=== PATIENT | female | born 1995 | race African-American/Black ===

== ENCOUNTER 2020-05-15 22:08 | Outpatient (CLI) | payer BC, OTHER ==
[2020-05-15 22:55] VITALS: BP 127/61; PULSE 90; RESP 16; TEMP 97
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
== END 2020-05-15 22:39 | disposition home or self-care (01) ==
LOC: FBPOP 22:08
PROVIDERS: ATTEND Obstetrics & Gynecology
DX: O26.92 Pregnancy related conditions, unspecified, second trimester (principal); Z3A.26 26 weeks gestation of pregnancy
CPT/HCPCS: 99213

== ENCOUNTER 2020-07-23 13:37 | Outpatient (CLI) | payer BC, OTHER ==
[2020-07-23 14:25] VITALS: BP 129/68; PULSE 88; RESP 15; TEMP 97.9
--- NOTE | 2020-07-30 08:54 | P.MSEPDOC ---
Presenting Problems - Arrival Data Date of Arrival on Unit: 07/23/20 Time of Arrival on Unit: 13:37 Mode of Transport: Ambulatory - Complaint OB-Reason for Admission/Chief Complaint: Decreased Movement Medical History - Information : 1 Para: 0 Term: 0 : 0 Abortions: Spontaneous or Elective: 0 Number of Living Children: 0 - Gestational Age Gestational Age by MELIZA (wks/days): 36 Weeks and 3 Days Review of Systems - Review of Systems Constitutional: No problems Breast: No problems ENT: No problems Cardiovascular: No problems Respiratory: No problems Gastrointestinal: No problems Genitourinary: No problems Musculoskeletal: No problems Neurological: No problems Skin: No problems Vital Signs - Temperature Temperature: 97.9 F Temperature Source: Temporal Artery Scan - Pulse Brachial Pulse Rate: 88 Pulse Assessment Method: Automatic Cuff - Respirations Respiratory Rate: 15 Oxygen Delivery Method: Room Air O2 Sat by Pulse Oximetry: 97 - Blood Pressure Right Arm Sitting Blood Pressure: 129/68 Blood Pressure Mean: 88 Blood Pressure Source: Automatic Cuff Medical Screen Scoring (Pre) - Cervical Exam Dilation: Exam Deferred Effacement: Exam Deferred Membranes: Intact - Uterine Contractions Frequency: N/A Duration: N/A Intensity: N/A - Maternal Vital Signs Maternal Temperature: N/A Maternal Blood Pressure: N/A Signs of Preeclampsia: N/A Maternal Respirations: N/A - Maternal Trauma Maternal Trauma: N/A - Assessment - Baby A Baseline FHR: 135 Heart Rate - NICHD Category: Category I (Normal) = 0 NST: Reactive Position: N/A Station: N/A - Total Score - Baby A Total Score - Baby A: 0 - Total Score - Baby B Total Score - Baby B: 0 - Total Score - Baby C Total Score - Baby C: 0 - Level of Risk - Baby A Level of Risk - Baby A: Low (0-5) - Level of Risk - Baby B Level of Risk - Baby B: Low (0-5) - Level of Risk - Baby C Level of Risk - Baby C: Low (0-5) Physician Notification (Pre) - Physician Notified Physician Notified Date: 07/23/20 Physician Notified Time: 14:15 New Order Received: Yes - Notification Comment Comment: pt here for decreased movement. Reactive NST and pt is now feeling lots of movement from baby. Disposition - Disposition OB Disposition: Physician follow up in office, Triage, Discharge to home, Written follow up instructions reviewed Discharge Date: 07/23/20 Discharge Time: 14:20 I agree with the RN Medical Screening Exam: Yes Risk & Benefit of care provided described in d/c instruction: Yes Diagnosis: DECREASED MOVEMENTS, THIRD TRIMESTER, UNSP
== END 2020-07-23 14:15 | disposition home or self-care (01) ==
LOC: FBPOP 13:37
PROVIDERS: ATTEND Obstetrics & Gynecology
DX: O36.8130 Decreased fetal movements, third trimester, not applicable or unspecified (principal); Z3A.36 36 weeks gestation of pregnancy
CPT/HCPCS: 59025; 99213

== ENCOUNTER 2020-08-25 15:55 | Inpatient (IN) | payer BC, OTHER ==
[2020-08-25 16:56] LABS: Basophils # (A) 0.1 k/uL (0-0.2); Basophils % (A) 0 %; Eosinophils # (A) 0.1 k/uL (0-0.7); Eosinophils % (A) 1 %; HCT 40.6 % (34.0-46.0); HGB 13.5 gm/dL (11.4-16.0); Lymphocytes # (A) 1.7 k/uL (1.0-4.8); Lymphocytes % (A) 13 %; MCH 28.4 pg (25.0-35.0); MCHC 33.2 g/dL (31.0-37.0); MCV 85.5 fL (80.0-100.0); Mean Platelet Volume 8.5; Monocytes # (A) 0.6 k/uL (0-1.0); Monocytes % (A) 4 %; Neutrophils # (A) 10.3 k/uL (1.3-7.7); Neutrophils % (A) 80 %; Platelet Count 196 k/uL (150-450); RBC 4.75 m/uL (3.80-5.40); RDW 14.1 % (11.5-15.5); WBC 12.9 k/uL (3.8-10.6)
[2020-08-25] MEDS ORDERED: BUTORPHANOL 1 MG/ML 1 ML VIAL IV PRN (16:58)
[2020-08-25] MEDS: miSOPROStoL 25 MCG TAB VAGINAL PRN ×3 (17:02→23:15)
--- NOTE | 2020-08-25 17:15 | P.HPOB ---
History of Present Illness H&P Date: 08/25/20 25-year-old female 1 para 0 EDC 08/17/2041 and one sevenths weeks' gestation. Patient presents tonight for Cytotec induction for postdates , unfavorable cervix. AMBERLY in the office today was 14. Reactive NST is noted. She admits to very mild uterine cramping, denies fluid leakage or vaginal bleeding. Fetus is been active throughout the . Past medical history is significant for obesity and asthma. Past surgical history is negative. Current medications vitamins. ALLERGIES none known. Family history is unremarkable. Social history patient is single, father of the baby is present and involved. She is a former marijuana smoker, none since . She works at a daycare center. She denies alcohol or tobacco use. history is significant for blood type A positive, rubella status immune. Pap smear, VDRL testing, urine culture, hepatitis B surface antigen, HIV testing, gonorrhea and chlamydia cultures all negative. One-hour Glucola 85. [place] strep cultures positive. On examination patient is 5 foot 8 inches, 270 pounds, blood pressure 141/78, pulse 93 on admission. General physical exam is within normal limits. Chest is clear in all villanueva. Extremities reveal no edema. Cervix is 1 cm dilated, posterior, soft, -2 station, vertex, 50% effaced. Cytotec 25 MCG's is placed posterior to the uterus. heart rate as noted is consistent with reactive NST. Impression: 41 and one sevenths weeks intrauterine , unfavorable cervix, here for Cytotec induction. First. [place] strep cultures positive. Plan: We will place Cytotec every 3 hours through the night. Nothing by mouth after midnight. Clear liquids until then. IV placed Hep-Lock. Analgesic options have been reviewed if the Cytotec medication presentation in labor area otherwise we will begin oxytocin at 0600 hrs. and attempt artificial amniorrhexis. Continue close maternal and surveillance. Review of Systems Constitutional: Reports as per HPI Past Medical History Past Medical History: Asthma History of Any Multi-Drug Resistant Organisms: None Reported Past Surgical History: Tonsillectomy Additional Past Surgical History / Comment(s): [place] Teeth Past Anesthesia/Blood Transfusion Reactions: No Reported Reaction Past Psychological History: No Psychological Hx Reported Smoking Status: Never smoker Past Alcohol Use History: None Reported Past Drug Use History: None Reported - Past Family History Father Family Medical History: No Reported History Medications and Allergies Home Medications Medication Instructions Recorded Confirmed Type Pnv,Calcium 72/Iron/Folic Acid 1 tab PO DAILY 05/15/20 08/25/20 History [ Plus Tablet] Allergies Allergy/AdvReac Type Severity Reaction Status Date / Time No Known Allergies Allergy Verified 08/25/20 15:56 Exam Vital Signs Temp Pulse Resp BP Pulse Ox 08/25/20 15:57 96.7 F L 93 16 141/78 98 08/25/20 15:55 96.7 F L 93 16 141/78 98 Intake and Output 08/25/20 08/25/20 08/25/20 06:59 14:59 22:59 Other: Weight 122.47 kg The exam under HPI please Results Result Diagrams: 08/25/20 16:51 Abnormal Lab Results - Last 24 Hours (Table) 08/25/20 Range/Units 16:51 WBC 12.9 H (3.8-10.6) k/uL Neutrophils # 10.3 H (1.3-7.7) k/uL Assessment and Plan Assessment: 41 and one sevenths weeks intrauterine , here for induction for postdates, unfavorable cervix. Maternal obesity and asthma noted. Positive group B strep culture status. Plan: Begin penicillin prophylaxis when active labor ensues. Analgesic options have been reviewed. Cytotec 25 MCG's intravaginally every 3 hours 3 doses tonight. Nothing by mouth after midnight. Oxytocin at 0600 hrs. pending progress. Patient is aware of the risks benefits and alternatives of this plan, all questions answered. Time with Patient: Less than 30
[2020-08-26] MEDS ORDERED: miSOPROStoL 100 MCG TAB VAGINAL PRN (02:19)
[2020-08-26] MEDS ORDERED: TERBUTALINE 1 MG/ML VIAL SQ PRN (05:27)
[2020-08-26] MEDS ORDERED: CARBOPROST TROMETHAMINE 250 MCG/ML 1 ML AMP IM PRN (05:27)
[2020-08-26] MEDS ORDERED: LIDOCAINE 0.5% (PF) 5 MG/ML (50 ML SDV) SQ PRN (05:27)
[2020-08-26] MEDS ORDERED: OXYTOCIN 10 UNIT/ML 1 ML VIAL IM PRN (05:27)
[2020-08-26] MEDS ORDERED: PENICILLIN G POTASSIUM 5,000,000 UNIT in DEXTROSE 5% IN WATER 100 ML IVPB STA ×2 (05:27)
[2020-08-26] MEDS ORDERED: METHYLERGONOVINE 0.2 MG/ML 1 ML AMP IM PRN (05:27)
[2020-08-26] MEDS ORDERED: OXYTOCIN 30 UNITS/500 ML NS 30 UNIT in SALINE 1 500ML.BAG IV SCH (05:30)
[2020-08-26] MEDS: LACTATED RINGERS 1,000 ML IV SCH ×3 (05:46→18:36)
[2020-08-26] MEDS: PENICILLIN G POTASSIUM 2,500,000 UNIT in DEXTROSE 5% IN WATER 100 ML IVPB SCH ×6 (10:13→17:40)
[2020-08-26] MEDS ORDERED: SODIUM CHLORIDE 0.9% 100 ML BAG ONE (12:50)
[2020-08-26] MEDS ORDERED: ROPIVACAINE 5MG/ML 20ML VIAL ONE (12:50)
[2020-08-26] MEDS ORDERED: fentaNYL (PF) 50 MCG/ML 5 ML AMP ONE (12:50)
[2020-08-26] MEDS ORDERED: ceFAZolin 3 GM in SODIUM CHLORIDE 0.9% 100 ML IVPB ONE (14:10)
[2020-08-26] MEDS ORDERED: CITRIC ACID-SODIUM CITRATE 15 ML CUP PO ONE (14:10)
[2020-08-26] MEDS ORDERED: OXYTOCIN 10 UNIT/ML 1 ML VIAL ONE (14:11)
[2020-08-26] MEDS ORDERED: MORPHINE SULFATE (PF) 0.3 MG/0.3 ML SYR ONE (14:11)
[2020-08-26] MEDS ORDERED: fentaNYL (PF) 50 MCG/ML 2 ML AMP ONE (14:11)
[2020-08-26] MEDS ORDERED: KETOROLAC 15 MG/ML 1 ML VIAL ONE (14:11)
[2020-08-26] MEDS ORDERED: METHYLERGONOVINE 0.2 MG/ML 1 ML AMP ONE (14:11)
[2020-08-26] MEDS ORDERED: diphenhydrAMINE 50 MG CAP PO PRN (15:07)
[2020-08-26] MEDS ORDERED: diphenhydrAMINE 50 MG/ML 1 ML VIAL IVP PRN ×2 (15:07)
[2020-08-26] MEDS ORDERED: ACETAMINOPHEN TAB 325 MG TAB PO PRN (15:07)
[2020-08-26] MEDS ORDERED: METOCLOPRAMIDE 5 MG/ML 2 ML VIAL IVP PRN (15:07)
[2020-08-26] MEDS ORDERED: SIMETHICONE 80 MG CHEWABLE PO PRN (15:07)
[2020-08-26] MEDS ORDERED: ZOLPIDEM 5 MG TAB PO PRN (15:07)
[2020-08-26] MEDS ORDERED: NALOXONE 0.4 MG/ML 1 ML VIAL IV PRN (15:07)
[2020-08-26] MEDS ORDERED: ONDANSETRON 4 MG/2 ML VIAL IVP PRN (15:07)
[2020-08-26] MEDS ORDERED: diphenhydrAMINE 25 MG CAP PO PRN (15:07)
--- NOTE | 2020-08-26 15:07 | P.OP ---
Date of Procedure: 08/26/20 Preoperative Diagnosis: 41-2/7 weeks, meconium-stained fluid, nonreassuring heart tones in the first stage of labor. Postoperative Diagnosis: Same, liveborn female infant left occiput transverse position Procedure(s) Performed: Primary low transverse section Anesthesia: epidural Surgeon: Edith Maher Adult Basic Education Manager #1: Fanny Conti Estimated Blood Loss (ml): 450 IV fluids (ml): 1,000 Urine output (ml): 200 Pathology: other (Placenta) Condition: stable Disposition: PACU Operative Findings: Liveborn female infant, left occiput transverse position. Normal-appearing tubes and ovaries bilaterally. Darkly stained placenta Description of Procedure: After placement of epidural in the first stage of labor, decelerations were noted. These resolved with position changes, but then resumed and became repetitive. Decision was made to proceed with primary low transverse section as patient was remote from delivery. Antibiotics are given. Patient is brought back to the operative suite, the appropriate timeout is performed to assure proper patient and procedural identification. The epidural that had been placed for labor was "topped off". Lei catheter placed to direct drainage. Vaginal prep was performed. Analgesia was checked and noted to be adequate after the abdomen was prepped and draped in usual sterile fashion. A low transverse skin incision is made in this is carried down through the subcutaneous tissue which is approximate 6 cm deep. Fascia is isolated, scored, extended bilaterally with curved Toussaint scissors. Peritoneum is next identified and incised, there is no bowel or bladder involvement. The large ring retractors placed in the abdomen for excellent visualization. A low transverse uterine incision is made and carried down through the myometrium. Upon entering the uterine cavity meconium-stained fluid is encountered. The 's head is brought into the incision in the left occiput transverse position. The oropharynx, nasopharynx, and external nares were all bulb suctioned. Patient is officially delivered of a liveborn female at 1431 hours. Umbilical cord is doubly clamped and ligated, she is handed to waiting nurses for evaluation where scores of 9 and 9 at one and 5 minutes respectively were given. weight 7 lbs. 13 oz. or 3540 g. Placentas delivered manually, it is inspected and noted to be intact with trivascular cord at 1432 hours. It is also noted to be darkly meconium stained and sent to pathology for evaluation. The uterus is then externalized and swept clean with a sterile sponge to avoid any retained products of conception. The edges of the incision are grasped with Driscoll clamps. The uterus is closed in a two-step fashion, first layer running locking with 0 Vicryl. Second layer imbricated with 0 Vicryl. Excellent reapproximation is noted. Tubes and ovaries appear normal to inspection. Abdomen is suctioned with suction on guard posterior to the uterus. Uterus is gently placed back into the abdominal cavity. Bilateral gutters are inspected and cleaned. Peritoneum is allowed to close by secondary intention. Hemostasis is excellent. The fascia is closed in a running fashion using 0 Vicryl suture with over ligation in the midline. Subcutaneous tissue is irrigated, clean and dry. It is reapproximated with 3-0 Vicryl in a running fashion. 4-0 undyed Monocryl is used for final skin closure. All sponge needle and enhancement counts are correct at the end of the procedure. Patient is allowed to begin the bonding experience with her infant in the recovery area. Lei is draining clear fluid.
[2020-08-26] MEDS: KETOROLAC 15 MG/ML 1 ML VIAL IVP PRN (19:45)
[2020-08-26] MEDS: SENNOSIDES-DOCUSATE SODIUM 1 EACH TAB PO SCH (19:45)
[2020-08-27] MEDS: LACTATED RINGERS 1,000 ML IV SCH (00:50)
[2020-08-27] MEDS: KETOROLAC 15 MG/ML 1 ML VIAL IVP PRN (03:53)
[2020-08-27 07:08] LABS: Basophils % (A) 0 %; Eosinophils # (A) 0.1 k/uL (0-0.7); Eosinophils % (A) 0 %; HCT 36.6 % (34.0-46.0); HGB 11.9 gm/dL (11.4-16.0); Lymphocytes # (A) 1.7 k/uL (1.0-4.8); Lymphocytes % (A) 11 %; MCH 27.7 pg (25.0-35.0); MCHC 32.6 g/dL (31.0-37.0); MCV 85.1 fL (80.0-100.0); Mean Platelet Volume 8.1; Monocytes # (A) 0.7 k/uL (0-1.0); Monocytes % (A) 5 %; Neutrophils # (A) 12.3 k/uL (1.3-7.7); Neutrophils % (A) 82 %; Platelet Count 172 k/uL (150-450); RBC 4.31 m/uL (3.80-5.40); RDW 14.3 % (11.5-15.5); WBC 14.9 k/uL (3.8-10.6)
--- NOTE | 2020-08-27 07:57 | P.PN ---
Subjective Progress Note Date: 08/27/20 Principal diagnosis: Well postoperative day #1 Slept well. Positive flatus. Pain well managed. No complaints Objective - Vital Signs Vital signs: Vital Signs Temp 98.1 F 08/27/20 04:00 Pulse 85 08/27/20 04:00 Resp 16 08/27/20 04:00 BP 120/56 08/27/20 04:00 Pulse Ox 99 08/27/20 04:00 Intake & Output 08/26/20 08/27/20 08/27/20 18:59 06:59 18:59 Output Total 401 1150 Balance -401 -1150 Output: Urine 400 1150 Uretheral (Lei) 150 Emesis 1 Other: Voiding Method Indwelling Catheter - Constitutional General appearance: Present: morbidly obese - EENT Eyes: Present: PERRLA ENT: Present: hearing grossly normal - Respiratory Respiratory: bilateral: CTA - Cardiovascular Rhythm: regular - Gastrointestinal Gastrointestinal Comment(s): Is firm, midline, symmetric, 18 week size. Incision clean and dry, well ap proximated. - Integumentary Integumentary: Present: normal - Neurologic Neurologic: Present: CNII-XII intact - Musculoskeletal Musculoskeletal: Present: gait normal, strength equal bilaterally - Psychiatric Psychiatric: Present: A&O x's 3, appropriate affect, intact judgment & insight - Labs CBC & Chem 7: 08/27/20 06:39 Labs: Abnormal Lab Results - Last 24 Hours (Table) 08/27/20 Range/Units 06:39 WBC 14.9 H (3.8-10.6) k/uL Neutrophils # 12.3 H (1.3-7.7) k/uL Assessment and Plan Assessment: Doing well postoperative day #1 Plan: Continue postoperative care. Anticipate discharge home tomorrow. Time with Patient: Less than 30
--- NOTE | 2020-08-27 08:53 | P.PN ---
Progress Note - Text Progress Note Date: 08/27/20 (714) Anesthesia Postop day 1 Subjective: Status Post section with Duramorph. Patient seen and examined. Doing well without complaint. VAS 4 out of 10. No nausea or vomiting. Mild pruritus tolerable.. Afebrile. Gross lower extremity strength intact. Spinal site intact without induration. Without apparent anesthetic complications. Objective: Vital signs reviewed Heart: Regular Rate Lungs: Good chest excursion Abdomen: Appears nondistended Assessment: Status post with Duramorph postop day 1 Plan: Continue current care with your medical management.
[2020-08-27] MEDS: SENNOSIDES-DOCUSATE SODIUM 1 EACH TAB PO SCH ×2 (09:01→20:20)
[2020-08-27] MEDS: IBUPROFEN 600 MG TAB PO PRN ×2 (14:18→20:24)
[2020-08-28] MEDS: IBUPROFEN 600 MG TAB PO PRN ×2 (03:57→09:40)
--- NOTE | 2020-08-28 08:26 | P.DS ---
Providers Date of admission: 08/25/20 15:55 Expected date of discharge: 08/28/20 Attending physician: Edith Maher Primary care physician: Stated None Hospital Course: This is a 25-year-old white female 1 para 0 EDC 08/17/2020 41-2/7 weeks' gestation. Patient presented for Cytotec induction for postdates . is remarkable for group B strep cultures positive, blood type B positive, rubella status immune. Please see dictated history and physical for details. Patient received Cytotec 3 intravaginally. The following morning artificial amniorrhexis was performed for light meconium-stained fluid. Through the course of the first stage of labor nonreassuring heart tones were noted and the decision was made to proceed with primary low transverse section. She underwent a low-transverse and gave to a liveborn female infant with scores of 9 and 9 at one and 5 minutes respectively. weighed 7 lbs. 13 oz. or 3540 g. Estimated blood loss 450 mL's. Please see my dictated delivery note for details. Left occiput transverse position was noted. This morning the patient is doing well. She is voiding, ambulating, passing flatus without difficulty. Vital signs are stable and she is afebrile. Fundus is firm and in the midline, symmetric and 18 week size. Extremities are negative for edema. Raymond is doing well. Incision is clean and dry, intact with Steri-Strips applied. Patient is judged to be in very good condition for discharge home. She will follow-up with me in the office in 2 weeks. I have reminded her no intercourse, tampons or douching. She will use [id number] Advil or Aleve, or Motrin as needed for pain. She will call with any fevers shakes or chills, foul smelling or copious lochia, with any redness drainage or issues of the incision, with any pain not alleviated by [id number] products, or indeed with any concerns. Assessment: Doing well postoperative day number two Patient Condition at Discharge: Good Plan - Discharge Summary Discharge Rx Participant: No New Discharge Prescriptions: No Action Pnv,Calcium 72/Iron/Folic Acid [ Plus Tablet] 1 tab PO DAILY Discharge Medication List Pnv,Calcium 72/Iron/Folic Acid [ Plus Tablet] 1 tab PO DAILY 05/15/20 [History] Follow up Appointment(s)/Referral(s): Edith Maher MD [STAFF PHYSICIAN] - 2 Weeks Discharge Disposition: HOME SELF-CARE
[2020-08-28 08:47] VITALS: BP 119/62; PULSE 81; RESP 18; TEMP 98.2
[2020-08-28] MEDS: SENNOSIDES-DOCUSATE SODIUM 1 EACH TAB PO SCH (09:40)
== END 2020-08-28 11:45 | disposition home or self-care (01) | DRG 788 ==
LOC: 4FBP 15:55
PROVIDERS: ADMIT Obstetrics & Gynecology; ATTEND Obstetrics & Gynecology
PROC: 3E0R3BZ Introduction of Anesthetic Agent into Spinal Canal, Percutaneous Approach (ICD-10-PCS; 2020-08-25)
PROC: 00HU33Z Insertion of Infusion Device into Spinal Canal, Percutaneous Approach (ICD-10-PCS; 2020-08-25)
PROC: 3E033VJ Introduction of Other Hormone into Peripheral Vein, Percutaneous Approach (ICD-10-PCS; 2020-08-25)
PROC: 10907ZC Drainage of Amniotic Fluid, Therapeutic from Products of Conception, Via Natural or Artificial Opening (ICD-10-PCS; 2020-08-25)
PROC: 3E0P7VZ Introduction of Hormone into Female Reproductive, Via Natural or Artificial Opening (ICD-10-PCS; 2020-08-25)
PROC: 10D00Z1 Extraction of Products of Conception, Low, Open Approach (ICD-10-PCS; principal; 2020-08-26 14:28)
DX: O48.0 Post-term pregnancy (principal); O64.0XX0 Obstructed labor due to incomplete rotation of fetal head, not applicable or unspecified; O99.214 Obesity complicating childbirth; E66.01 Morbid (severe) obesity due to excess calories; O76 Abnormality in fetal heart rate and rhythm complicating labor and delivery; O99.824 Streptococcus B carrier state complicating childbirth; Z37.0 Single live birth; Z3A.41 41 weeks gestation of pregnancy; O77.0 Labor and delivery complicated by meconium in amniotic fluid; J45.909 Unspecified asthma, uncomplicated; O99.52 Diseases of the respiratory system complicating childbirth; O99.72 Diseases of the skin and subcutaneous tissue complicating childbirth; L29.9 Pruritus, unspecified; Z79.899 Other long term (current) drug therapy; Z90.89 Acquired absence of other organs; Z98.890 Other specified postprocedural states
CPT/HCPCS: 85025; 86850; 86900; 86901; 88307

== ENCOUNTER 2025-04-14 10:05 | Inpatient (IN) | payer BC, OTHER ==
[2025-04-14] MEDS ORDERED: METHYLERGONOVINE 0.2 MG/ML 1 ML AMP IM PRN (10:23)
[2025-04-14] MEDS ORDERED: TRANEXAMIC 1,000 MG/100ML-NACL 1,000 MG in EMPTY BAG 1 BAG IV PRN (10:23)
[2025-04-14] MEDS ORDERED: CARBOPROST TROMETHAMINE 250 MCG/ML 1 ML AMP IM PRN (10:23)
[2025-04-14] MEDS ORDERED: OXYTOCIN 10 UNIT/ML 1 ML VIAL IM PRN (10:23)
[2025-04-14] MEDS ORDERED: OXYTOCIN 30 UNITS/500 ML NS 30 UNIT in SALINE 1 500ML.BAG IV SCH (10:30)
[2025-04-14] MEDS: LACTATED RINGERS 1,000 ML IV ONE (10:42)
[2025-04-14 10:44] LABS: Basophils # (A) 0.03 10*3/uL (0.00-0.10); Basophils % (A) 0.2 %; Eosinophils # (A) 0.13 10*3/uL (0.04-0.35); Eosinophils % (A) 1.0 %; HCT 37.8 % (37.2-46.3); HGB 12.5 g/dL (12.0-15.0); Lymphocytes # (A) 1.49 10*3/uL (0.90-5.00); Lymphocytes % (A) 11.7 %; MCH 27.7 pg (27.0-32.0); MCHC 33.1 g/dL (32.0-37.0); MCV 83.6 fL (80.0-97.0); Monocytes # (A) 0.79 10*3/uL (0.20-1.00); Monocytes % (A) 6.2 %; Neutrophils # (A) 10.23 10*3/uL (1.80-7.70); Neutrophils % (A) 80.4 %; Platelet Count 189 10*3/uL (140-440); RBC 4.52 10*6/uL (4.10-5.20); RDW 14.9 % (11.5-14.5); WBC 12.73 10*3/uL (4.50-10.00)
[2025-04-14] MEDS: LACTATED RINGERS 1,000 ML IV SCH (11:47)
[2025-04-14] MEDS: CITRIC ACID-SODIUM CITRATE 15 ML CUP PO ONE (11:47)
[2025-04-14] MEDS ORDERED: MORPHINE SULFATE (PF) 0.3 MG/0.3 ML SYR ONE (12:04)
[2025-04-14] MEDS ORDERED: PHENYLEPHRINE-0.9% NACL SYG 1,000 MCG/10 ML SYRINGE ONE (12:04)
[2025-04-14] MEDS ORDERED: ONDANSETRON 4 MG/2 ML VIAL ONE (12:04)
[2025-04-14] MEDS ORDERED: OXYTOCIN 10 UNIT/ML 1 ML VIAL ONE (12:04)
[2025-04-14] MEDS ORDERED: KETOROLAC 30 MG/ML 1 ML VIAL ONE (12:04)
[2025-04-14] MEDS ORDERED: NALBUPHINE (ANES) 10 MG/ML - 1 ML AMP ONE (12:04)
--- NOTE | 2025-04-14 12:05 | P.HPOB ---
History of Present Illness H&P Date: 04/14/25 Chief Complaint: 39+ weeks, previous section, requesting repeat The patient is a 29-year-old 2 para 1-0-0-1 who presents to the hospital at 39+ weeks as established by last menstrual period confirmed by 14-week ultrasound. She is admitted for repeat low-transverse section having undergone a previous section. She had initially requested vaginal trial of labor but was found in the late third trimester with the fetus at well over the 90th percentile growth and opted instead to proceed with repeat low- transverse section. On labor delivery, all signs are reassuring with a category 1 heart rate tracing. Her was otherwise uncomplicated and group B strep status is negative. Obstetrical history: 2 para 1-0-0-1 with 1 term delivery as noted above. EDC of 04/19/2025 was established by last menstrual period and confirmed by 14-week ultrasound. Laboratory workup demonstrates a blood type of A+ with a negative antibody screen. Rubella status is immune. The remainder of the laboratory workup was within normal limits. Early Glucola was normal as was second trimester Glucola. Group B strep status is negative. Gynecologic history: Unremarkable with no history of any infections to include STDs. Review of Systems Review of systems is confined to history of present illness. Past Medical History Past Medical History: Asthma History of Any Multi-Drug Resistant Organisms: None Reported Past Surgical History: Tonsillectomy Additional Past Surgical History / Comment(s): [place] Teeth Past Anesthesia/Blood Transfusion Reactions: No Reported Reaction Past Psychological History: No Psychological Hx Reported Smoking Status: Never smoker Past Alcohol Use History: None Reported Past Drug Use History: None Reported - Past Family History Father Family Medical History: No Reported History Medications and Allergies Home Medications Medication Instructions Recorded Confirmed Type Vit No.180/Iron/Folic 1 tab PO DAILY 05/15/20 04/14/25 History [ Plus Tablet] Allergies Allergy/AdvReac Type Severity Reaction Status Date / Time No Known Allergies Allergy Verified 08/25/20 15:56 Exam Vital Signs Temp Pulse Resp BP Pulse Ox 04/14/25 10:22 98.9 F 95 16 140/70 98 Intake and Output 04/13/25 04/14/25 04/14/25 22:59 06:59 14:59 Other: Weight 126.099 kg In general, this is a well-developed, mild to moderately obese -Iranian female in no acute distress. Her heart has a regular rhythm and rate without murmur. Her lungs clear to auscultation bilaterally in all villanueva. Her abdomen is gravid, nondistended, has normal active bowel sounds, soft, nontender, and without any palpable masses aside from uterine fundus. Her extremities are without any cyanosis, clubbing, or edema and are nontender to palpation bilaterally. Digital cervical examination is deferred. Results Result Diagrams: 04/14/25 10:30 Abnormal Lab Results - Last 24 Hours (Table) 04/14/25 Range/Units 10:30 WBC 12.73 H (4.50-10.00) 10*3/uL Immature Gran # 0.06 H (0.00-0.04) 10*3/uL Neutrophils # 10.23 H (1.80-7.70) 10*3/uL Assessment and Plan (1) Previous section Current Visit: Yes Status: Acute Code(s): Z98.891 - HISTORY OF UTERINE SCAR FROM PREVIOUS SURGERY SNOMED Code(s): 743584399 (2) Term Current Visit: Yes Status: Acute Code(s): Z34.90 - ENCNTR FOR SUPRVSN OF NORMAL , UNSP, UNSP TRIMESTER SNOMED Code(s): 41651027 Plan: The patient is admitted for repeat low-transverse section. The risks and complications have been discussed and she has understood and agreed to proceed.
[2025-04-14] MEDS ORDERED: diphenhydrAMINE 25 MG CAP PO PRN (13:01)
[2025-04-14] MEDS ORDERED: ZOLPIDEM 5 MG TAB PO PRN (13:01)
[2025-04-14] MEDS ORDERED: NALOXONE 0.4 MG/ML 1 ML VIAL IV PRN (13:01)
[2025-04-14] MEDS ORDERED: SIMETHICONE 80 MG CHEWABLE PO PRN (13:01)
[2025-04-14] MEDS ORDERED: METOCLOPRAMIDE 5 MG/ML 2 ML VIAL IVP PRN (13:01)
[2025-04-14] MEDS ORDERED: LANOLIN CREAM 1 GM TUBE TOPICAL PRN (13:01)
[2025-04-14] MEDS ORDERED: ONDANSETRON 4 MG/2 ML VIAL IVP PRN (13:01)
[2025-04-14] MEDS ORDERED: diphenhydrAMINE 50 MG/ML 1 ML VIAL IVP PRN ×2 (13:01)
--- NOTE | 2025-04-14 13:09 | P.OP ---
Date of Procedure: 04/14/25 Preoperative Diagnosis: #1. 39-2/7 weeks, previous section, requesting repeat Postoperative Diagnosis: Same Procedure(s) Performed: #1. Repeat low-transverse section Anesthesia: spinal Surgeon: Urbano Rowe Lacquer Coater #1: Maria De Jesus Cordova Estimated Blood Loss (ml): 380 IV fluids (ml): 900 Urine output (ml): 500 Pathology: none sent Condition: stable Disposition: floor Operative Findings: The patient was taken to the operating room where she underwent repeat low- transverse section in an uncomplicated fashion and was delivered of a viable 8 pound 5 ounce baby girl with Apgars of 9 at 1 minute and 9 at 5 minutes in the occiput anterior position. The placenta was delivered manually, intact, grossly normal with a grossly normal three-vessel cord. The uterus, tubes, and ovaries were entirely normal to inspection. The lower uterine segment was fairly thin upon entry of the abdomen. Description of Procedure: The patient was prepped and draped in usual fashion after spinal anesthesia was administered by the anesthesiologist. A Pfannenstiel incision was made through pre-existing scar and extended into the abdominal cavity without difficulty. The bladder peritoneum was significantly distal enough to the incision to be left intact. A 2 cm incision was made in the transverse plane of the lower uterine segment which was fairly thin to enter the uterus at which time clear fluid was noted. The incision was extended both directions using the bandage scissors. The head was delivered up and through the incision where the nose and mouth were thoroughly suction. The remainder of the was delivered onto the field where the cord was doubly clamped, cut, and the passed resuscitative measures with weight and Apgars as noted above. A segment of cord was doubly clamped, cut, and set aside should cord gases be necessary. The placenta was delivered manually and intact as noted above. The uterus was exteriorized in the anterior cavity uterus swept of any remaining placental or membranous fragments. The margins of the uterine incision were grasped with Driscoll clamps and the incision closed in 2 layers. The first layer was a running locking stitch of 0 chromic catgut from margin margin followed by running imbricating stitch of 0 chromic catgut from margin to margin. Hemostasis appeared to be excellent. The posterior cul-de-sac was suctioned with a guard followed by laparotomy sponge. The uterine and ovarian findings were normal as noted above. Uterus was replaced within the abdominal cavity and the gutters were swept of any remaining blood, fluid, or clot. The incision was reexamined and any small points of bleeding were made hemostatic with the Bovie. The layer of muscles was again examined and found to be hemostatic. The fascia was closed with a single running stitch of 0 Vicryl proceeding from margin to margin. The subcutaneous tissues were irrigated, made hemostatic with the Bovie , and reapproximated with a running stitch of 3-0 plain catgut from margin to margin. The incision was closed with a running subcuticular stitch of 4-0 Vicryl from margin to margin followed by half-inch Steri-Strips placed with Mastisol. Quantitative blood loss for the case was 380 mL. There were no complications. All sponge, instrument, and needle counts were correct. The patient tolerated the procedure well and proceeded to the recovery room in stable condition. Both mother and are resting comfortably in recovery.
[2025-04-14] MEDS: ACETAMINOPHEN TAB 500 MG TAB PO SCH (16:13)
[2025-04-14] MEDS: KETOROLAC 15 MG/ML 1 ML VIAL IVP PRN (20:24)
[2025-04-14] MEDS: SENNOSIDES-DOCUSATE SODIUM 1 EACH TAB PO SCH (20:25)
[2025-04-15] MEDS: LACTATED RINGERS 1,000 ML IV SCH (03:08)
[2025-04-15 06:30] LABS: Basophils # (A) 0.05 10*3/uL (0.00-0.10); Basophils % (A) 0.3 %; Eosinophils # (A) 0.17 10*3/uL (0.04-0.35); Eosinophils % (A) 1.2 %; HCT 35.6 % (37.2-46.3); HGB 11.6 g/dL (12.0-15.0); Lymphocytes # (A) 1.61 10*3/uL (0.90-5.00); Lymphocytes % (A) 10.9 %; MCH 27.7 pg (27.0-32.0); MCHC 32.6 g/dL (32.0-37.0); MCV 85.0 fL (80.0-97.0); Monocytes # (A) 0.87 10*3/uL (0.20-1.00); Monocytes % (A) 5.9 %; Neutrophils # (A) 11.95 10*3/uL (1.80-7.70); Neutrophils % (A) 81.2 %; Platelet Count 170 10*3/uL (140-440); RBC 4.19 10*6/uL (4.10-5.20); RDW 15.0 % (11.5-14.5); WBC 14.72 10*3/uL (4.50-10.00)
--- NOTE | 2025-04-15 06:34 | P.PN ---
Progress Note - Text 04/15/25 601am 29-year-old female status post with spinal Duramorph. Patient seen and evaluated for postop pain control, she has a VAS of 4 with no complaint of nausea vomiting or headache. She does have pruritus which should subside
--- NOTE | 2025-04-15 08:35 | P.PNOBGPC ---
Subjective - Subjective Patient reports: Reports appetite normal, Reports voiding normally, Reports pain well controlled, Reports ambulating normally : doing well Objective - Vital Signs Latest vital signs: Vital Signs Temp Pulse Resp BP Pulse Ox 04/15/25 08:00 97.4 F L 87 16 117/71 04/15/25 00:00 98.1 F 86 16 124/79 98 04/14/25 20:30 97.8 F 75 16 118/74 98 04/14/25 15:00 96.7 F L 64 18 120/58 98 04/14/25 14:47 96.2 F L 61 18 111/60 97 04/14/25 14:32 97.5 F L 69 18 100/54 99 04/14/25 14:17 78 18 103/55 99 04/14/25 14:02 96.3 F L 69 16 108/55 99 04/14/25 13:47 97.6 F 69 16 106/55 98 04/14/25 13:32 96.6 F L 69 16 101/54 97 04/14/25 13:17 96.5 F L 77 16 100/67 98 04/14/25 13:02 96.8 F L 80 16 120/59 98 04/14/25 10:22 98.9 F 95 16 140/70 98 Intake and Output 04/14/25 04/15/25 04/15/25 22:59 06:59 14:59 Output Total 606 1300 Balance -606 -1300 Output: Urine 500 1300 Uretheral (Lei) 200 Output, Quantitative 106 Blood Loss Other: Voiding Method Indwelling Catheter # Voids 1 2 - Exam Extremities: Present: normal Abdomen: Present: normal appearance, soft. Absent: distention, tenderness Incision: Present: normal, dry, intact Uterus: Present: normal, firm (The uterine fundus is tonic and minimally tender below the umbilicus.) - Labs Labs: Abnormal Lab Results - Last 24 Hours (Table) 04/14/25 04/15/25 Range/Units 10:30 06:19 WBC 12.73 H 14.72 H (4.50-10.00) 10*3/uL Hgb 11.6 L (12.0-15.0) g/dL Hct 35.6 L (37.2-46.3) % Immature Gran # 0.06 H 0.07 H (0.00-0.04) 10*3/uL Neutrophils # 10.23 H 11.95 H (1.80-7.70) 10*3/uL Assessment and Plan (1) Previous section Current Visit: Yes Status: Acute Code(s): Z98.891 - HISTORY OF UTERINE SCAR FROM PREVIOUS SURGERY SNOMED Code(s): 396344616 (2) Term Current Visit: Yes Status: Acute Code(s): Z34.90 - ENCNTR FOR SUPRVSN OF NORMAL , UNSP, UNSP TRIMESTER SNOMED Code(s): 42803917 (3) S/P section Current Visit: Yes Status: Acute Code(s): Z98.891 - HISTORY OF UTERINE SCAR FROM PREVIOUS SURGERY SNOMED Code(s): 998298605 Plan: Continue routine and postoperative care. I have encouraged the patient ambulate in the hallways routinely. I would anticipate discharge home tomorrow pending no complications.
[2025-04-15] MEDS: IBUPROFEN 800 MG TAB PO SCH (12:55)
--- NOTE | 2025-04-16 08:44 | P.DS ---
Providers Date of admission: 04/14/25 10:05 Expected date of discharge: 04/16/25 Attending physician: Urbano Rowe Primary care physician: Stated None - Discharge Diagnosis(es) (1) Previous section Current Visit: Yes Status: Acute (2) Term Current Visit: Yes Status: Acute (3) S/P section Current Visit: Yes Status: Acute Hospital Course: The patient is a 29-year-old 2 para 1-0-0-1 who presented to the hospital at 39+ weeks for repeat low-transverse section with a previous history of . Her was uncomplicated. She had originally considered vaginal trial of labor but was found with the fetus at greater than 90th percentile in the third trimester and opted instead to proceed with repeat section. On labor and delivery, all signs were reassuring with a category and heart rate tracing. Group B strep status was negative. She was taken to the operating room where she was delivered of a viable 7 pound 8 ounce baby girl with Apgars of 9 at 1 minute and 9 at 5 minutes. Her and postoperative course was unremarkable with vital signs remaining stable and her temperature was afebrile throughout. She was deemed stable for discharge on and postoperative day #2 and was discharged home to follow-up in the office in 2 weeks for an incision check in 6 weeks routinely. Discharge instructions included calling for any significantly increased bleeding or foul- smelling lochia, significantly increased fever or abdominal pain, perineal complaints, breast complaints, incisional complaints, or anything else that concerned her. She was additionally instructed to have nothing in the vagina for at least 6 weeks time to include intercourse. She was instructed to do no heavy lifting over the same period of time and she was lastly instructed to do no driving until off of all pain medications or 2 weeks time, whichever came first. She understood her instructions and agrees to follow-up as noted above. Discharge medications included continued [id number] analgesic pain medications as well as vitamins as she has opted to breast-feed. She otherwise was provided with a prescription for oxycodone 5 mg, 1-2 p.o. every 6 hours as needed pain, #20 dispensed with no refills. Maternal blood type is A+ and rubella status is immune. Discharge hemoglobin and hematocrit were 11.6 and 35.6 respectively. Procedures: #1. Repeat low-transverse section Patient Condition at Discharge: Stable Plan - Discharge Summary Discharge Rx Participant: No New Discharge Prescriptions: No Action Vit No.180/Iron/Folic [ Plus Tablet] 1 tab PO DAILY Discharge Medication List Vit No.180/Iron/Folic [ Plus Tablet] 1 tab PO DAILY 05/15/20 [History] Follow up Appointment(s)/Referral(s): Urbano Rowe MD [STAFF PHYSICIAN] - 04/28/25 11:00 am (6 week appointment 05/22/25 @ 2:45 PM) Discharge Disposition: HOME SELF-CARE
[2025-04-16 09:05] VITALS: BP 131/80; PULSE 88; RESP 18; TEMP 98.7
== END 2025-04-16 13:29 | disposition home or self-care (01) | DRG 788 ==
LOC: 4FBP 10:05
PROVIDERS: ADMIT Obstetrics & Gynecology; ATTEND Obstetrics & Gynecology
PROC: 10D00Z1 Extraction of Products of Conception, Low, Open Approach (ICD-10-PCS; principal; 2025-04-14 12:00)
DX: O34.211 Maternal care for low transverse scar from previous cesarean delivery (principal); J45.909 Unspecified asthma, uncomplicated; O99.52 Diseases of the respiratory system complicating childbirth; Z37.0 Single live birth; L29.9 Pruritus, unspecified; Z3A.39 39 weeks gestation of pregnancy
CPT/HCPCS: 85025; 86850; 86900; 86901